=== PATIENT | female | born 1960 | race Caucasian/White ===

== ENCOUNTER 2017-11-02 13:29 | Emergency (ER) | payer MEDICAID | END 2017-11-02 17:05 | disposition home or self-care (01) | LOC: D.ER 13:29 | DX: M79.652 Pain in left thigh (principal) ==

== ENCOUNTER 2018-01-13 20:23 | Emergency (ER) | payer MEDICAID ==
[2018-01-13 22:09] LABS: BASOPHILS 0.4 % (0-2); EOSINOPHILS 7.3 % (0-7); HEMATOCRIT 35.3 % (36.0-48.0); HEMOGLOBIN 11.8 g/dL (12-16); IMMATURE GRANULOCYTES 0.1 % (0-5); LYMPHOCYTES 24.3 % (15-50); MCH 29.8 pg (26.0-34.0); MCHC 33.4 g/dL (31.0-37.0); MCV 89.1 fL (80.0-100.0); MEAN PLATELET VOLUME 9.5 fL (7.4-10.4); NEUTROPHILS 61.9 % (40-80); PLATELET COUNT 380 10x3/uL (130-400); RBC 3.96 10x6/uL (4.00-5.40); RDW 12.9 % (11.5-14.5); WBC 9.2 10x3/uL (4.8-10.8)
[2018-01-13 22:14] LABS: ALBUMIN 3.7 g/dL (3.4-5.0); ANION GAP 15.7 mmol/L (8-16); BILIRUBIN - TOTAL 0.2 mg/dL (0.2-1.3); CALCIUM 8.9 mg/dL (8.5-10.1); CARBON DIOXIDE 25.4 mmol/L (21.0-32.0); CREATININE - SERUM 1.1 mg/dL (0.6-1.3); POTASSIUM - SERUM 4.1 mmol/L (3.5-5.1); PROTEIN - SERUM 7.7 g/dL (6.4-8.2)
[2018-01-13 22:20] LABS: INR 0.93 (0.85-1.17); PROTIME 12.1 SECONDS (11.6-15.0)
[2018-01-13 22:22] LABS: D-DIMER-QUANTITATIVE 0.44 ug/mLFEU (0.20-0.54)
[2018-01-13 22:39] LABS: APTT 26.9 SECONDS (22.8-39.4)
== END 2018-01-13 22:37 | disposition left against medical advice (07) ==
LOC: D.ER 20:23
PROVIDERS: Emergency Medicine
DX: M79.605 Pain in left leg (principal); F17.200 Nicotine dependence, unspecified, uncomplicated

== ENCOUNTER 2018-02-15 08:59 | Emergency (ER) | payer MEDICAID | END 2018-02-15 11:12 | disposition home or self-care (01) | LOC: D.ER 08:59 | DX: M54.16 Radiculopathy, lumbar region (principal); F17.200 Nicotine dependence, unspecified, uncomplicated ==

== ENCOUNTER 2018-03-23 15:58 | Emergency (ER) | payer MEDICAID ==
[~2018-03-23] VITALS: Ht 170.2 cm; Wt 68.2 kg
[2018-03-23 16:14] VITALS: Ht 170.2 cm; Wt 68.2 kg
[2018-03-23] MEDS ORDERED: TORADOL10 MG PO (20:52)
[2018-03-23] MEDS ORDERED: NEURONTIN 300300 MG PO (20:52)
[2018-03-23 20:58] VITALS: BP 121/67
== END 2018-03-23 20:58 | disposition home or self-care (01) ==
LOC: D.ER 15:58
DX: M54.5 Low back pain (principal); M54.30 Sciatica, unspecified side; F17.200 Nicotine dependence, unspecified, uncomplicated

== ENCOUNTER 2018-03-27 04:04 | Emergency (ER) | payer MEDICAID ==
[~2018-03-27] VITALS: Ht 170.2 cm; Wt 69.5 kg
[~2018-03-27 04:04] MED LIST: NEURONTIN 300300 MG PO; TORADOL10 MG PO
[2018-03-27 04:10] VITALS: Ht 170.2 cm; Wt 69.5 kg
[2018-03-27] MEDS ORDERED: MEDROL DOSE PACK4 MG PO (04:34)
[2018-03-27] MEDS ORDERED: ACETAMINOPHEN500 M1 PO (04:34)
[2018-03-27] MEDS ORDERED: CYCLOBENZAPRINE10 MG PO (04:34)
[2018-03-27 05:19] VITALS: BP 152/72
== END 2018-03-27 05:20 | disposition home or self-care (01) ==
LOC: D.ER 04:04
DX: M25.552 Pain in left hip (principal)

== ENCOUNTER 2018-04-10 12:35 | Emergency (ER) | payer MEDICAID ==
[~2018-04-10] VITALS: Ht 170.2 cm; Wt 72.7 kg
[~2018-04-10 12:35] MED LIST changes: +ACETAMINOPHEN500 M1 PO; +CYCLOBENZAPRINE10 MG PO; +MEDROL DOSE PACK4 MG PO
[2018-04-10] MEDS ORDERED: NEURONTIN 300300 MG PO (12:43)
[2018-04-10] MEDS ORDERED: OXYCONTIN10 MG PO (12:43)
[2018-04-10] MEDS ORDERED: DECADRON4 MG PO (12:43)
[2018-04-10] MEDS ORDERED: PHENERGAN25 M1 PO (12:43)
[2018-04-10 13:38] VITALS: BP 118/69
[2018-04-10 14:04] LABS: HEMATOCRIT 35.4 % (36.0-48.0); HEMOGLOBIN 11.8 g/dL (12-16); MCH 28.9 pg (26.0-34.0); MCHC 33.3 g/dL (31.0-37.0); MCV 86.6 fL (80.0-100.0); MEAN PLATELET VOLUME 9.1 fL (7.4-10.4); PLATELET COUNT 405 10x3/uL (130-400); RBC 4.09 10x6/uL (4.00-5.40); WBC 28.2 10x3/uL (4.8-10.8)
[2018-04-10 14:15] LABS: INR 1.03 (0.85-1.17); PROTIME 13.1 SECONDS (11.6-15.0)
[2018-04-10 14:22] LABS: LYMPHOCYTES 13 % (15-50); MONOCYTES 4 % (2-11); NEUTROPHILS 83 % (40-80); PLATELET ESTIMATE NORMAL
[2018-04-10 14:25] LABS: ALBUMIN 3.4 g/dL (3.4-5.0); ALKALINE PHOSPHATASE 78 U/L (46-116); ALT (SGPT) 18 U/L (10-68); CALC OSMOLALITY 276 mosm/kg (275-300); CALCIUM 8.6 mg/dL (8.5-10.1); CHLORIDE - SERUM 98 mmol/L (98-107); CREATININE - SERUM 0.7 mg/dL (0.6-1.3); GLUCOSE 112 mg/dL (74-106); POTASSIUM - SERUM 3.5 mmol/L (3.5-5.1); SODIUM 136 mmol/L (136-145); UREA NITROGEN 23 mg/dL (7-18); eGFR NON AFRICAN AMERICAN > 90 mL/min (90-120)
[2018-04-10 14:45] VITALS: BP 126/107
[2018-04-10 15:50] VITALS: BP 124/60
[2018-04-10 17:46] VITALS: BP 124/88
[2018-04-10 18:50] VITALS: BP 124/62
[2018-04-10 20:32] VITALS: BP 126/62
[2018-04-13 15:19] LABS: SPE - A/G RATIO 1.1 (0.7-1.7); SPE - ALBUMIN 3.3 g/dL (2.9-4.4); SPE - ALPHA-1 GLOBULIN 0.2 g/dL (0.0-0.4); SPE - BETA GLOBULIN 0.8 g/dL (0.7-1.3); SPE - GAMMA GLOBULIN 0.9 g/dL (0.4-1.8); SPE - M-SPIKE Not Observed g/dL (Not Observed); SPE - TOTAL PROTEIN 6.2 g/dL (6.0-8.5)
[2018-05-09 09:39] VITALS: Ht 170.2 cm; Wt 72.7 kg
== END 2018-04-10 21:53 | disposition short-term general hospital (02) | DRG 536 ==
LOC: D.ER 12:35 → D.EDHOLD 15:29 → D.MS 17:36 → D.EDHOLD 21:53
PROVIDERS: Emergency Medicine
DX: S72.052A Unspecified fracture of head of left femur, initial encounter for closed fracture (principal); S52.501A Unspecified fracture of the lower end of right radius, initial encounter for closed fracture; W19.XXXA Unspecified fall, initial encounter; R91.8 Other nonspecific abnormal finding of lung field